=== PATIENT | male | born 1950 | race Caucasian/White ===

== ENCOUNTER 2016-07-26 18:01 | Emergency (ER) | payer OTHER ==
[2016-07-26 18:07] VITALS: BP 182/90; BMI 25.0
--- NOTE | 2016-07-26 18:46 | DR.GENAD ---
HPI - PCP Primary Care Physician: JIMBO - Complaint/Symptoms Chief Complaint Doctors Comments: Patient was working on yesterday and lifting a heavy metal object in an attempt to get the object into the bed of the truck, the object landed on his left hand. Chief Complaint:: PT SMASHED HIS LEFT HAND YESTERDAY - Source History Provided: Patient - Mode of Arrival Mode of Arrival: Ambulatory - Timing Onset of Chief Complaint: 07/25/16 <NATE GOODE - Last Filed: 07/26/16 19:53> PMH - PMH Past Medical History: Yes Past Medical History: Arthritis Past Surgical History: No - Family History History of Family Medical Conditions: No - Social History Does patient currently use any type of tobacco product: Yes Have you used tobacco products in the last 12 months: Yes Type of Tobacco Use: Cigarettes How many years tobacco product used: 30 Does any household member use tobacco: Yes Alcohol Use: Heavy Do you use any recreational Drugs:: No Lives With: Family Lives Where: Home - infectious screening In the last 2 months have you had wt loss of >10#?: NO Have you had fever, night sweats or hemotysis?: No Have you traveled outside the country in the last 6 months?: No Isolation: Standard <NATE GOODE - Last Filed: 07/26/16 19:53> ROS - Review of Systems Eyes: No Symptoms Reported ENTM: No Symptoms Reported Respiratoy: No Symptoms Reported Cardiovascular: No Symptoms Reported Gastrointestinal/Abdominal: No Symptoms Reported Genitourinary: No Symptoms Reported Neurological: No Symptoms Reported Musculoskeletal: Hand (left) Integumentary: No Symptoms Reported Hematologic/Lymphatic: No Symptoms Reported Endocrine: No Symptoms Reported Psychiatric: No Symptoms Reported All Other Systems: Reviewed and Negative <NATE GOODE - Last Filed: 07/26/16 19:53> PE - General Limitations: No Limitations General Appearance: Alert, In No Apparent Distress - Head Head Exam: Normal Inspection, Atraumatic - Eyes Eye exam: Normal Appearance, PERRL, EOMI - ENT ENT Exam: Normal Exam External Ear Exam: Normal External Inspection TM/Canal Exam: Bilateral Normal Nose Exam: Normal Nose Exam Mouth Exam: Normal Inspection Throat Exam: Normal Inspection - Neck Neck Exam: Normal Inspection - Chest Chest Inspection: Normal Inspection - Respiratory Respiratory Exam: Normal Lung Sounds Bilat Respiratory Exam: Bilateral Clear to Auscultation - Cardiovascular Cardiovascular Exam: Regular Rate, Normal Rhythm - Abdominal Exam Abdominal Exam: Normal Inspection Abdominal Tenderness: negative: RUQ, RLQ, LUQ, LLQ, Epigastrium, Suprapubic, Diffuse, Mild, Moderate, Severe, Other - Extremities Extremities Exam: Tenderness, Edema - Back Back Exam: Normal Inspection - Neurologic Neurological Exam: Alert, Oriented X3, CN II-XII Intact - Psychiatric Psychiatric Exam: Normal Mood - Skin Skin Exam: Warm, Dry, Intact <NATE GOODE - Last Filed: 07/26/16 19:53> ROR - XRAY XRAY Interpreted by: Radiologist (Left hand: comminuted fracture of the proximal phalanx of the 4th digit extending through the volar plate to the MCP joint. Questionable medial subluxation of the 4th digit DIP; questionable impaction fracture of the distal ulna with surrounding soft tissue edema. Dedicated wrist radiographs for further delineation.) <NATE GOODE - Last Filed: 07/26/16 19:53> - Labs Reviewed Laboratory Results Reviewed?: Yes (all x-ray results reviewed and discussed with patient) - XRAY XRAY Interpreted by: Both (Left Hand: Comminuted fracture of proimal phalanx 4th digit) <TORREY DURHAM - Last Filed: 07/26/16 21:39> <NATE GOODE - Last Filed: 07/26/16 19:53> <TORREY DURHAM - Last Filed: 07/26/16 21:39> - Diagnosis Discharge Problem: comminuted fracture proximal phalanx , fracture 4th digit Contusion of hand, left Qualifiers: Encounter type: initial encounter Qualified Code(s): S60.222A - Contusion of left hand, initial encounter Crushing injury of hand, left Qualifiers: Encounter type: initial encounter Qualified Code(s): S67.22XA - Crushing injury of left hand, initial encounter - Discharge Plan Disposition: HOME, SELF-CARE Condition: Stable Prescriptions: Hydrocodone-Acet 7.5 mg/325 mg [NORCO 7.5 MG/325 MG *] 1 tab PO Q6H PRN #28 tab PRN Reason: Pain Naproxen [NAPROSYN 500 MG *] 500 mg PO BID PRN #40 tab PRN Reason: Pain/Inflammation - Follow ups/Referrals Follow ups/Referrals: JOSE CRUZ CHOI [Primary Care Provider] - 3 days MICHAEL CLARK [STAFF PHYSICIAN] - 3 days - Instructions Instructions: Finger Fracture, Hand Contusion, Crush Injury, Fingers or Toes
--- NOTE | 2016-07-26 19:39 | RAD ---
HAND RADIOGRAPHS CLINICAL HISTORY: 65-year-old male status post crush injury to the left hand. COMPARISON: None. FINDINGS: 3 views of the left hand were obtained. These demonstrate comminuted fracture through the proximal phalanx of the 4th digit extending through the volar plate into the joint space. There is q uestionable subluxation of the 4th digit DIP joint medially. Questionable impaction fracture of the distal ulna. Remaining imaged osseous structures are congruent without fracture. Soft tissue edema about the hand and wrist. The mineralization is maintained. IMPRESSION: 1. Comminuted fracture of the proximal phalanx of the 4th digit extending through the volar plate to the MCP joint. 2. Questionable medial subluxation of the 4th digit DIP. 3. Questionable impaction fracture of the distal ulna with surrounding soft tissue edema. Dedicated wrist radiographs for further delineation. Reported By:
--- NOTE | 2016-07-26 20:40 | RAD ---
HISTORY: 65-year-old male status post crush injury to the left hand and wrist. Study: Three views left wrist. Comparison: None. Findings: Previously identified comminuted fracture of the proximal phalanx of the 4th digit with degenerative changes about the 1st carpometacarpal joint. Findings concerning about the ulna appear chronic and degenerative in nature. Soft tissue edema about the wrist. IMPRESSION: 1. No evidence of acute fracture malalignment of the left wrist with chronic degenerative change an d soft tissue edema. Reported By:
[2016-07-26] MEDS ORDERED: TORADOL 60 MG VIAL ONE (21:12)
[2016-07-26] MEDS ORDERED: TORADOL 60 MG VIAL IM ONE (21:16)
== END 2016-07-26 21:49 | disposition home or self-care (01) ==
LOC: ER 18:23
DX: S62.513A Displaced fracture of proximal phalanx of unspecified thumb, initial encounter for closed fracture (principal); S60.222A Contusion of left hand, initial encounter; S67.22XA Crushing injury of left hand, initial encounter; X50.0XXA Overexertion from strenuous movement or load, initial encounter; Y92.9 Unspecified place or not applicable
CPT/HCPCS: 29130; 29260; 73100; 73130; 96372; 99283; J1885

== ENCOUNTER → 2016-08-22 | Outpatient (CLI) | payer OTHER ==
[2016-07-26 18:07] VITALS: BP 182/90
--- NOTE | 2016-08-22 11:14 | RAD ---
Examination: X-rays of the left hand. Clinical history: Closed nondisplaced fracture of proximal phalanx of ring finger. Technique: Three views of the left hand were obtained through a cast. Comparison: 07/26/2016. Findings: The cast obscures much of the fine bony detail. There is an essentially nondisplaced, comminuted fracture of the proximal to mid diaphysis of the pr oximal phalanx of the 4th finger, which may extend intraarticularly at the MCP joint. There is dorsa l angulation of the distal fragment. No appreciable callus formation or periosteal reaction is noted at the fracture site. No additional bony or soft tissue abnormality is noted. Impression: 1. Fracture of the proximal phalanx of the 4th finger, as described above. Reported By:
== END ==
LOC: RAD 10:42
PROVIDERS: ATTEND Orthopaedic Surgery
DX: S62.645A Nondisplaced fracture of proximal phalanx of left ring finger, initial encounter for closed fracture (principal); X58.XXXA Exposure to other specified factors, initial encounter
CPT/HCPCS: 73130